=== PATIENT | male | born 1945 | race African-American/Black ===

== ENCOUNTER → 2017-03-27 | Outpatient (CLI) | payer MEDICARE | END | disposition home or self-care (01) | LOC: RAD 09:34 | PROVIDERS: ATTEND Internal Medicine Nephrology | DX: I10 Essential (primary) hypertension (principal); R07.89 Other chest pain; R13.19 Other dysphagia | CPT/HCPCS: 71111 ==

== ENCOUNTER → 2017-05-02 | Outpatient (CLI) | payer MEDICARE | END | disposition home or self-care (01) | LOC: RAD 10:36 | PROVIDERS: ATTEND Internal Medicine Nephrology | DX: A15.8 Other respiratory tuberculosis (principal); J90 Pleural effusion, not elsewhere classified | CPT/HCPCS: 71045 ==